=== PATIENT | female | born 1995 ===

== ENCOUNTER 2019-06-16 07:25 | Inpatient (IN) | payer OTHER ==
[2019-06-16] MEDS ORDERED: AMPICILLIN - 2 GM in SODIUM CHLORIDE 100 ML IVPB ONE ×2 (08:30→10:00)
[2019-06-16] MEDS ORDERED: ELECTROLYTE-148 SOLN 1,000 ML IV SCH ×2 (08:45→11:15)
[2019-06-16] MEDS ORDERED: AMPICILLIN SODIUM 2 GM VIAL ONE (09:45)
[2019-06-16 09:55] LABS: BASO % 0.5 % (0-2.0); EOS % 0.9 % (0-4.5); HEMATOCRIT 34.2 % (32.4-45.2); HEMOGLOBIN 11.1 GM/dL (10.7-15.3); MCH 23.9 pg (25.7-33.7); MCHC 32.6 g/dl (32.0-36.0); MEAN CELL VOLUME 73.2 fl (80-96); MEAN PLT VOLUME 8.3 fl (7.5-11.1); MONO % 4.2 % (3.8-10.2); NEUT % 81.4 % (42.8-82.8); PLATELET COUNT 342 K/MM3 (134-434); RBC 4.67 M/mm3 (3.60-5.2); RDW 23.8 % (11.6-15.6); WHITE BLOOD COUNT 12.1 K/mm3 (4.0-10.0)
[2019-06-16] MEDS ORDERED: AMPICILLIN - 1 GM in SODIUM CHLORIDE 100 ML IVPB SCH (10:00)
[2019-06-16 10:04] LABS: INR 0.92 (0.83-1.09); PROTHROMBIN TIME (PATIENT) 10.9 SEC (9.7-13.0)
[2019-06-16 10:07] LABS: ACTIVATED PTT 31.4 SECONDS (25.2-36.5)
[2019-06-16 10:08] LABS: BLOOD UREA NITROGEN 9.6 mg/dL (7-18); CALCIUM 8.8 mg/dL (8.5-10.1); CREATININE 0.5 mg/dL (0.55-1.3); POTASSIUM 4.3 mmol/L (3.5-5.1)
[2019-06-16] MEDS ORDERED: OXYTOCIN 30 UNITS in 0.9% NS 30 UNIT/500 ML INFUS.BAG IVPB ONE (10:27)
[2019-06-16 10:38] VITALS: BMI 30.2
--- NOTE | 2019-06-16 11:04 | HP ---
Past Medical History - Primary Care Physician PCP:: Yancy Underwood - Admission Chief Complaint: 24yo P 0 @ 40.1 in labor, no VB, no LOF, + FM History of Present Illness: 1. Late registrant -Quad 12/30/18 nl 2. GBS UTI - for Abx in labor 3. Multiple tattoos, piercings and hair coloring 4. 2 vesel umbilical cord - normal growth 5. Parvo NI 6. Iron deficiency anemia, s/p IV iron 7. Travelled to [place] 10/2015 - no symptoms, registered for 1 mn later History Source: Patient, Medical Record Limitations to Obtaining History: No Limitations - Past Medical History ...: 1 ...Para: 0 ...Term: 0 ...: 0 ...Spon : 0 ...Induced : 0 ...Multiple Gestation: 0 ...LMP: 08/31/18 ... Weeks Gestation by Dates: 41.1 ...EDC by Dates: 06/07/19 ...EDC by Sono: 06/15/19 Heme/Onc: Yes: Anemia - Past Surgical History Past Surgical History: Yes: None Hx Myomectomy: No Hx Transabdominal Cerclage: No - Smoking History Smoking history: Never smoked Have you smoked in the past 12 months: No - Alcohol/Substance Use Hx Alcohol Use: No History of Substance Use: reports: None - Social History History of Recent Travel: Yes (10/2018 [place]) Home Medications - Allergies Allergies/Adverse Reactions: Allergies Allergy/AdvReac Type Severity Reaction Status Date / Time No Known Allergies Allergy Verified 06/16/19 08:09 Family Disease History - Family Disease History Family Disease History: Diabetes: Mother, Brother, Heart Disease: Father Review of Systems - Review of Systems Constitutional: reports: No Symptoms Eyes: reports: No Symptoms HENT: reports: No Symptoms Neck: reports: No Symptoms Cardiovascular: reports: No Symptoms Respiratory: reports: No Symptoms Gastrointestinal: reports: No Symptoms Genitourinary: reports: No Symptoms Breasts: reports: No Symptoms Reported Musculoskeletal: reports: No Symptoms Integumentary: reports: No Symptoms Neurological: reports: No Symptoms Endocrine: reports: No Symptoms Hematology/Lymphatic: reports: No Symptoms Psychiatric: reports: No Symptoms Physical Exam - Maternity Vital Signs: Vital Signs Temperature 97.9 F 06/16/19 10:19 Pulse Rate 84 06/16/19 10:19 Respiratory Rate 20 06/16/19 10:19 Blood Pressure 123/75 06/16/19 10:19 O2 Sat by Pulse Oximetry (%) Constitutional: Yes: Well Nourished, No Distress, Calm Eyes: Yes: WNL, Conjunctiva Clear, EOM Intact HENT: Yes: WNL, Atraumatic, Normocephalic Neck: Yes: WNL, Supple, Trachea Midline Cardiovascular: Yes: WNL, Regular Rate and Rhythm Lungs: Clear to auscultation Breast(s): Yes: WNL - Abdominal Exam/OB Fundal Height: 40 Number of Fetuses: Single Presentation: Vertex Contractions: Yes Regularity: Regular Intensity: Moderate Monitor Mode: External Heart Rate (range): 150s Heart Rate Location: Midline Category: I Accelerations: Uniform Decelerations: None - Vaginal Exam/OB Vaginal Bleediing: No Speculum Exam: No Dilatation (cm): 3 Effacement (%): 50% Amniotic Membrane Status: Intact Presentation: Vertex/Position Station: -3 - Physical Exam Musculoskeletal: Yes: WNL Edema: No Integumentary: Yes: WNL ...Motor Strength: WNL Psychiatric: Yes: WNL, Alert, Oriented - Labs Lab Results: CBC, BMP 06/16/19 09:10 06/16/19 09:10 Assessment/Plan 24yo P0 @ 40.1 wks in early active labor Admit to L&D Labs, IVF, NPO Pain meds as needed, prefers to take IV pain medication only Pitocin augmentation as needed Adequate pelvis, EFW 7lb
[2019-06-16] MEDS ORDERED: BUTORPHANOL TARTRATE 1 MG/ML VIAL IVPB ONE (11:08)
[2019-06-16] MEDS ORDERED: PROMETHAZINE HCL 25 MG/1 ML VIAL IVPB ONE (11:08)
[2019-06-16] MEDS ORDERED: DEXTROSE 5%-LACTATED RINGERS 1,000 ML IV SCH (11:15)
[2019-06-16] MEDS ORDERED: OXYTOCIN 30 UNITS in 0.9% NS 30 UNIT/500 ML INFUS.BAG IVPB SCH (11:15)
[2019-06-16 11:25] LABS: ANISOCYTOSIS 1+; MACROCYTOSIS 0; PLATELET ESTIMATE NORMAL
[2019-06-16] MEDS ORDERED: AMPICILLIN SODIUM 1 GM VIAL ONE ×3 (13:52→21:54)
[2019-06-16] MEDS: AMPICILLIN - 1 GM in SODIUM CHLORIDE 100 ML IVPB SCH ×3 (14:00→22:00)
[2019-06-16] MEDS ORDERED: PROMETHAZINE HCL 25 MG/1 ML VIAL ONE (19:36)
[2019-06-16] MEDS ORDERED: BUTORPHANOL TARTRATE 1 MG/ML VIAL ONE ×2 (19:36)
--- NOTE | 2019-06-16 19:52 | PN ---
Progress Note, Labor Vaginal Exam #1 Labor Exam Date: 06/16/19 Labor Exam Time: 19:30 Heart Rate (range): 130 Dilatation: 6 Effacement (%): 90 Amniotic Membrane Status: Intact Presentation: Vertex/Position Station: -1 Remarks: AROM for augmentation Stadol/Phenergan now Start Pitocin s/p 3 doses of Ampicillin
[2019-06-16] MEDS ORDERED: OXYTOCIN 20 UNITS in 0.9% NS 20 UNIT/1,000 ML INFUS.BAG IV ONE (22:52)
[2019-06-16] MEDS ORDERED: LIDOCAINE HCL 1% PRESERVATIVE FREE - 30ML VIAL ONE (22:52)
--- NOTE | 2019-06-16 23:28 | PN ---
Delivery - Delivery Vaginal Delivery: No Problems Type of Anesthesia: General (IV Stadol) Episiotomy/Laceration: None EBL (cc): 500 Delivery, Single - Stages of Labor Date 1st Stage Initiatied: 06/16/19 Date 2nd Stage Initiated: 06/16/19 Date of Delivery: 06/16/19 Time of Delivery: 23:10 Date Placenta Delivered: 06/16/19 Time Placenta Delivered: 23:13 Placenta: Yes: Spontaneous - Condition of Echo Vascular Technologist/Admissions Supervisor Present: No Infant Gender: Female Position: Left, OA - 1 Minute Total Score: 9 5 Minutes Total Score: 9 - Feeding Plan Initial Plan: Exclusive throughout hospitalization Remarks - Remarks Remarks: Uncomplicated delivery of the head Tight nuchal cord, clamped and cut shoulders delivered without difficulty
[2019-06-16] MEDS ORDERED: BISACODYL 10 MG SUPP.RECT RC PRN (23:29)
[2019-06-16] MEDS ORDERED: BENZOCAINE 28 GM HEMORRHOIDAL OINTMENT TP PRN (23:29)
[2019-06-16] MEDS ORDERED: IBUPROFEN 600 MG TABLET (FP) PO PRN (23:29)
[2019-06-16] MEDS ORDERED: BENZOCAINE 20% 57 GM BOTTLE TP PRN (23:29)
[2019-06-16] MEDS ORDERED: WITCH HAZEL 50% (TUCKS) 40 PAD/JAR PAD TP PRN (23:29)
[2019-06-16] MEDS ORDERED: METHYLERGONOVINE MALEATE 0.2 MG/1 ML AMP IM PRN (23:29)
[2019-06-16] MEDS ORDERED: D5W-LR W/ 20 UNITS OXYTOCIN 20 UNIT/1,000 ML INFUS.BAG IV SCH (23:30)
[2019-06-17] MEDS: IBUPROFEN 200 MG TABLET PO PRN ×2 (01:42→21:04)
[2019-06-17] MEDS: ACETAMINOPHEN 325 MG TABLET (FP) PO PRN ×2 (01:42→21:03)
[2019-06-17 08:01] LABS: BASO % 0.5 % (0-2.0); EOS % 0.4 % (0-4.5); HEMATOCRIT 28.6 % (32.4-45.2); HEMOGLOBIN 9.2 GM/dL (10.7-15.3); LYMPH % 11.5 % (8-40); MCH 23.8 pg (25.7-33.7); MCHC 32.3 g/dl (32.0-36.0); MEAN CELL VOLUME 73.8 fl (80-96); MEAN PLT VOLUME 8.2 fl (7.5-11.1); MONO % 4.7 % (3.8-10.2); NEUT % 82.9 % (42.8-82.8); PLATELET COUNT 300 K/MM3 (134-434); RBC 3.87 M/mm3 (3.60-5.2); RDW 25.5 % (11.6-15.6); WHITE BLOOD COUNT 13.1 K/mm3 (4.0-10.0)
--- NOTE | 2019-06-17 08:16 | PN ---
Post Progress Note - Subjective Subjective: Patient without acute complaints. Reports tolerating oral intake without nausea or vomiting. Ambulating without dizziness. Denies fevers or chills. Pain well controlled with oral pain medication. Passing flatus. Post Day: 1 Type of Delivery: Vital Signs: Vital Signs Temperature 98.6 F 06/17/19 05:51 Pulse Rate 98 H 06/17/19 05:51 Respiratory Rate 18 06/17/19 05:51 Blood Pressure 122/66 06/17/19 05:51 O2 Sat by Pulse Oximetry (%) Breast Exam: Yes: Soft Uterus: Yes: Fundus Firm Abdomen/GI: Yes: Abdomen soft, Passing flatus, Tolerating PO Lochia: Yes: Rubra Lochia, amount: Small Extremities: Yes: Calves non-tender Perineum: Yes: Intact Activity: Ambulating - Labs Labs: CBC WBC 12.1 K/mm3 (4.0-10.0) H 06/16/19 09:10 RBC 4.67 M/mm3 (3.60-5.2) 06/16/19 09:10 Hgb 11.1 GM/dL (10.7-15.3) 06/16/19 09:10 Hct 34.2 % (32.4-45.2) 06/16/19 09:10 MCV 73.2 fl (80-96) L 06/16/19 09:10 MCH 23.9 pg (25.7-33.7) L 06/16/19 09:10 MCHC 32.6 g/dl (32.0-36.0) 06/16/19 09:10 RDW 23.8 % (11.6-15.6) H 06/16/19 09:10 Plt Count 342 K/MM3 (134-434) 06/16/19 09:10 MPV 8.3 fl (7.5-11.1) 06/16/19 09:10 Absolute Neuts (auto) 9.9 K/mm3 (1.5-8.0) H 06/16/19 09:10 Neutrophils % 81.4 % (42.8-82.8) 06/16/19 09:10 Lymphocytes % 13.0 % (8-40) 06/16/19 09:10 Monocytes % 4.2 % (3.8-10.2) 06/16/19 09:10 Eosinophils % 0.9 % (0-4.5) 06/16/19 09:10 Basophils % 0.5 % (0-2.0) 06/16/19 09:10 Nucleated RBC % 0 % (0-0) 06/16/19 09:10 Hypochromia 0 06/16/19 09:10 Platelet Estimate Normal 06/16/19 09:10 Polychromasia 0 06/16/19 09:10 Poikilocytosis 0 06/16/19 09:10 Anisocytosis 1+ 06/16/19 09:10 Microcytosis 1+ 06/16/19 09:10 Macrocytosis 0 06/16/19 09:10 Assessment/Plan 24yo P1 now S/p , female VSS, Afebrile Doing well Rh pos no need for RhoGam continue routine care
[2019-06-17] MEDS: PRENATAL VITAMINS W/ FOLIC ACID TABLET (FP) PO SCH (09:30)
[2019-06-17] MEDS: FERROUS SO4 325 MG TABLET (FP) PO SCH ×2 (09:30→21:03)
[2019-06-17] MEDS ORDERED: SENNOSIDES/DOCUSATE COMBO (SENNA PLUS) TABLET (UD) PO PRN (22:00)
--- NOTE | 2019-06-18 08:36 | PN ---
Post Progress Note - Subjective Subjective: Patient without acute complaints. Reports tolerating oral intake without nausea or vomiting. Ambulating without dizziness. Denies fevers or chills. Pain well controlled with oral pain medication. Pumping/breast feeding without issue. Passing flatus. Post Day: 2 Type of Delivery: Vital Signs: Vital Signs Temperature 98.0 F 06/17/19 21:08 Pulse Rate 113 H 06/17/19 21:08 Respiratory Rate 18 06/17/19 21:08 Blood Pressure 120/58 L 06/17/19 21:08 O2 Sat by Pulse Oximetry (%) Breast Exam: Yes: Soft Uterus: Yes: Fundus Firm, Fundus below umbilicus, Non-tender Abdomen/GI: Yes: Abdomen soft, Passing flatus, Tolerating PO Lochia: Yes: Rubra Lochia, amount: Small Extremities: Yes: Calves non-tender Perineum: Yes: Intact Activity: Ambulating - Labs Labs: CBC WBC 13.1 K/mm3 (4.0-10.0) H 06/17/19 06:46 RBC 3.87 M/mm3 (3.60-5.2) 06/17/19 06:46 Hgb 9.2 GM/dL (10.7-15.3) L 06/17/19 06:46 Hct 28.6 % (32.4-45.2) L D 06/17/19 06:46 MCV 73.8 fl (80-96) L 06/17/19 06:46 MCH 23.8 pg (25.7-33.7) L 06/17/19 06:46 MCHC 32.3 g/dl (32.0-36.0) 06/17/19 06:46 RDW 25.5 % (11.6-15.6) H 06/17/19 06:46 Plt Count 300 K/MM3 (134-434) 06/17/19 06:46 MPV 8.2 fl (7.5-11.1) 06/17/19 06:46 Absolute Neuts (auto) 10.9 K/mm3 (1.5-8.0) H 06/17/19 06:46 Neutrophils % 82.9 % (42.8-82.8) H 06/17/19 06:46 Lymphocytes % 11.5 % (8-40) 06/17/19 06:46 Monocytes % 4.7 % (3.8-10.2) 06/17/19 06:46 Eosinophils % 0.4 % (0-4.5) 06/17/19 06:46 Basophils % 0.5 % (0-2.0) 06/17/19 06:46 Nucleated RBC % 0 % (0-0) 06/17/19 06:46 Hypochromia 0 06/16/19 09:10 Platelet Estimate Normal 06/16/19 09:10 Polychromasia 0 06/16/19 09:10 Poikilocytosis 0 06/16/19 09:10 Anisocytosis 1+ 06/16/19 09:10 Microcytosis 1+ 06/16/19 09:10 Macrocytosis 0 06/16/19 09:10 Assessment/Plan 24yo s/p , doing well stable, afebrile. Asymptomatic for anemia. care instructions reviewed. Continue routine care. Ambulation encouraged Discharge instruction reviewed.
--- NOTE | 2019-06-18 08:38 | DS ---
Physical Exam-CHAINER Vital Signs: Vital Signs Temperature 98.0 F 06/17/19 21:08 Pulse Rate 113 H 06/17/19 21:08 Respiratory Rate 18 06/17/19 21:08 Blood Pressure 120/58 L 06/17/19 21:08 O2 Sat by Pulse Oximetry (%) Constitutional: Yes: Well Nourished, No Distress, Calm Eyes: Yes: WNL, Conjunctiva Clear, EOM Intact HENT: Yes: WNL, Atraumatic, Normocephalic Neck: Yes: WNL, Supple, Trachea Midline Cardiovascular: Yes: WNL, Regular Rate and Rhythm Respiratory: Yes: WNL, Regular, CTA Bilaterally Gastrointestinal: Yes: WNL, Normal Bowel Sounds, Soft ...Rectal Exam: Yes: Deferred Renal/: Yes: WNL External Genitalia: Yes: Normal ....Post : Yes: Uterus firm, Uterus non-tender, Slight lochia rubra Breast(s): Yes: WNL Musculoskeletal: Yes: WNL Extremities: Yes: WNL Edema: Yes Edema: LLE: Trace, RLE: Trace Integumentary: Yes: WNL Neurological: Yes: WNL, Alert, Oriented ...Motor Strength: WNL Psychiatric: Yes: WNL, Alert, Oriented Labs: CBC, BMP 06/17/19 06:46 06/16/19 09:10 Delivery - Delivery Vaginal Delivery: No Problems, Spontaneous Type of Anesthesia: None Episiotomy/Laceration: None EBL (cc): 500 Delivery, Single - Stages of Labor Date 1st Stage Initiatied: 06/16/19 Time 1st Stage Initiated: 20:10 Date 2nd Stage Initiated: 06/16/19 Time 2nd Stage Initiated: 22:45 Date of Delivery: 06/16/19 Time of Delivery: 23:10 Time Placenta Delivered: 23:13 Placenta: Yes: Spontaneous - Condition of Rigging Man/Banner Painter Present: No Infant Gender: Female Weight: 3.005 kg Position: Left, OA Total Hours ROM (Hrs/Mins): 3H43M - 1 Minute Total Score: 9 5 Minutes Total Score: 9 - Feeding Plan Initial Plan: Exclusive throughout hospitalization Discharge Summary Reason For Visit: ADMISSION OF LABOR Post term , spont labor Procedures: Principal: Hospital Course: Normal recovery Condition: Good - Instructions Diet, Activity, Other Instructions: Physical activity Resume your normal everyday activity as tolerated no heavy lifting or exercise until seen by your surgeon. You may walk unlimited shoaib of and climb stairs. You may resume driving the car when you feel safe and comfortable behind the wheel. No sexual activity as instructed. Wound care If you have a bandage, leave it on, and keep dry for 48-72 hours. After that time discard the outer bandage. If they are tapes on the skin under the out of bandage leave them in place. They will peel off in the next 7 to 10 days. Do Not Peel them off. You may shower the day after surgery. If there are tapes present on the skin, you may shower over them. Diet There are no dietary restrictions. Eat healthy, high-fiber foods. Drink 6 to 8 glasses of liquid each day. This will assist in keeping your bowels are regular. Pain management You may take Tylenol or acetaminophen or Ibuprofen (for example, Motrin, Advil etc.) from my pain prescription medication is ordered should be taken as prescribed for moderate to severe pain. Call MD for any of the following: Severe pain not relieved by medication Fever of 101 or higher Excessive bleeding or drainage on dressing Inability to urinate Referrals: Yancy Underwood MD [Staff Physician] - Disposition: HOME
[2019-06-18] MEDS: PRENATAL VITAMINS W/ FOLIC ACID TABLET (FP) PO SCH (10:34)
[2019-06-18] MEDS: FERROUS SO4 325 MG TABLET (FP) PO SCH (10:34)
[2019-06-18 12:46] VITALS: BP 141/94; PULSE 90; TEMP 98.2
== END 2019-06-18 13:55 | disposition home or self-care (01) | DRG 560 ==
LOC: JDEL 07:25 → JLDR 08:20 → J3W 06-17 01:10
PROVIDERS: ADMIT Obstetrics & Gynecology; ATTEND Obstetrics & Gynecology
PROC: 10E0XZZ Delivery of Products of Conception, External Approach (ICD-10-PCS; principal; 2019-06-16)
DX: O99.02 Anemia complicating childbirth (principal); D50.9 Iron deficiency anemia, unspecified; O69.1XX0 Labor and delivery complicated by cord around neck, with compression, not applicable or unspecified; Z3A.40 40 weeks gestation of pregnancy; Z37.0 Single live birth
CPT/HCPCS: 36415; 36600; 59409; 80048; 82803; 85025; 85610; 85730; 86593; 86850; 86900; 86901